=== PATIENT | male | born 1950 ===

== ENCOUNTER 2020-05-12 11:21 | Emergency (ER) | payer MEDICARE, SELFPAY ==
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
[2020-05-12 11:32] VITALS: BP 130/69; PULSE 76; RESP 20; TEMP 36.3; O2SAT 99
== END 2020-05-12 11:47 | disposition home or self-care (01) ==
PROVIDERS: Emergency Provider Emergency Medicine; PCP Internal Medicine
DX: T25.021A Burn of unspecified degree of right foot, initial encounter (principal); T25.022A Burn of unspecified degree of left foot, initial encounter; E11.9 Type 2 diabetes mellitus without complications; I10 Essential (primary) hypertension; Z79.82 Long term (current) use of aspirin; T31.0 Burns involving less than 10% of body surface; X08.8XXA Exposure to other specified smoke, fire and flames, initial encounter
CPT/HCPCS: 99213; G0463

== ENCOUNTER 2020-08-29 09:56 | Emergency (ER) | payer MEDICARE, SELFPAY ==
[2020-08-29 10:09] VITALS: BP 140/78; PULSE 82; RESP 16; TEMP 36.1; O2SAT 98
--- NOTE | 2020-08-29 10:32 | ED.SKABFB ---
HPI - Skin/Abscess/Foreign Bdy General Chief complaint: Skin/Abscess/Foreign Body Stated complaint: facial swelling/redness Time Seen by Provider: 08/29/20 10:19 Source: patient and RN notes reviewed Mode of arrival: ambulatory Limitations: no limitations History of Present Illness HPI narrative: Patient presents today complaining of redness, swelling, and pain to the right face x 2 days. Symptoms do not seem to be worsening. Pain only with touching the face and with movement of the mouth. Denies itching or rash. Denies any known insect bites or injury to the face. No tooth pain or sinus issues or drainage. States he had a temperature of 100 yesterday, but it was 97 today. He has tried no [id number] interventions prior to arrival. Denies history of abscesses, boils, cellulitis. History of diabetes. MD complaint: discoloration Related Data Home Medications Medication Instructions Recorded Confirmed aspirin 81 mg tablet,delayed 81 mg PO DAILY 10/18/19 08/29/20 release clobetasol TOPICAL 08/29/20 08/29/20 insulin glargine [Basaglar KwikPen 25 unit SUB-Q DAILY 08/29/20 08/29/20 U-100 Insulin] Allergies Allergy/AdvReac Type Severity Reaction Status Date / Time bee venom protein (honey bee) Allergy Swelling Verified 08/29/20 10:03 Review of Systems Review of Systems: Narrative: CONSTITUTIONAL: Denies body aches, fever, chills, or sweats. EYES: Denies visual changes, redness, or discharge. ENT: Denies rhinorrhea, congestion, sore throat, or otalgia. CARDIOVASCULAR: Denies chest pain, palpitations, or edema. RESPIRATORY: Denies cough or dyspnea. GASTROINTESTINAL: Denies abdominal pain, nausea, vomiting, or diarrhea. GENITOURINARY: Denies dysuria or hematuria. SKIN: Redness, swelling to the right face MUSCULOSKELETAL: Denies back pain, joint pain, or myalgia. NEUROLOGIC: Denies headache, numbness, tingling, or weakness. PSYCH: Denies depression or anxiety. [facility] Past Medical History Medical History (Updated 08/29/20 @ 10:33 by Caroline Daniel, [employer], [employer]) Diabetes mellitus Essential (primary) hypertension Insulin dependent diabetes mellitus Skin cancer Surgical History Surgical History (Updated 10/18/19 @ 09:10 by Lourdes Espinoza, [facility]) Hx of prostate biopsy Family History Family History (Updated 04/12/18 @ 13:44 by DOCTOR UNKNOWN) Father Diabetes mellitus Hypertension Family history of Alzheimer's disease Mother Hypertension Other Family history of cardiovascular disease Family history of malignant neoplasm Social History Social History Smoking status: Never smoker Alcohol intake: never Gender identity (if verbalized by the patient): Male Comments At time of signature, I have reviewed and agree with nursing past medical, surgical, social and family history unless otherwise noted. Please see nursing chart for further information. There is no relevant family history pertinent to the presenting complaint Exam Narrative: Exam Narrative: GENERAL: Well-appearing, well-nourished, and in no acute distress. HEAD: Normocephalic, atraumatic. EYES: EOMI. PERRL. No redness or drainage. Conjunctivae normal. ENT: Mucous membranes pink and moist. Nares clear. No rhinorrhea. TMs normal bilaterally. NECK: Normal AROM. Supple. Tenderness in the right postauricular, anterior cervical, and submandibular chains. CHEST: No respiratory distress. EXTREMITIES: Normal range of motion. No edema. SKIN: dry. Capillary refill normal. Normal skin turgor. Tenderness to right face. Erythema from right moravian extending to right cheek to mandible. Scant induration at moravian and small area at the cheekbone. No wounds, drainage, areas of fluctuance or possible abscess. Full AROM of the jaw. Nose unaffected. Lips unaffected. Right earlobe is mildly erythematous. Increased warmth to areas of erythema. NEURO: No focal deficits. Alert and oriented x3. Gait steady. PSYCH: Normal affect. No s
== END 2020-08-29 10:37 | disposition home or self-care (01) ==
PROVIDERS: Emergency Provider Nurse Practitioner; PCP Internal Medicine
DX: L03.211 Cellulitis of face (principal); E11.9 Type 2 diabetes mellitus without complications; I10 Essential (primary) hypertension; Z79.4 Long term (current) use of insulin; Z85.828 Personal history of other malignant neoplasm of skin
CPT/HCPCS: 99213; G0463

== ENCOUNTER 2021-05-27 09:56 | Emergency (ER) | payer MEDICARE, SELFPAY ==
--- NOTE | ~2021-05-27 | CT_ITS ---
EXAMINATION: CT abdomen pelvis wo con DATE: 05/27/2021 14:14 INDICATION: Right flank pain. TECHNIQUE: Computed tomography (CT) of the abdomen and pelvis was performed without intravenous contr ast. Automated exposure control and iterative reconstruction technique were employed. The dose-length product was 806.19 mGy-cm. COMPARISON: None. FINDINGS: The visualized portions of the lung bases demonstrate mild atelectasis. A calcified left satish ng nodule is consistent with old granulomatous disease. No pleural effusion. The heart size is normal . There are coronary artery calcifications. No pericardial effusion. The liver and gallbladder are no rmal. Calcifications in the spleen are consistent with old granulomatous disease. The pancreas and ad renal glands are normal. There is a 2 mm stone in right kidney. There is moderate right hydronephrosi s and hydroureter. There is a 4 mm stone in proximal right ureter. There is edema and a small volume of fluid in the right retroperitoneum. There are three 1-2 mm stones in left kidney. There is mild le ft hydronephrosis. The bladder is distended. The prostate is severely enlarged. There are no dilated loops of bowel. The appendix is normal. There are no pathologically enlarged lymph nodes. There is satish mbar levoscoliosis and severe spondylosis. There is mild chronic anterior wedging of multiple thoraci c vertebral bodies. IMPRESSION: 1. 4 mm stone in proximal right ureter with moderate right hydronephrosis and hydroureter. 2. Small nonobstructing bilateral kidney stones. 3. Mild left hydronephrosis, which may be secondary to the bladder distention. Reviewed, dictated and finalized at location B. IMPRESSION: 1. 4 mm stone in proximal right ureter with moderate right hydronephrosis and h ydroureter. 2. Small nonobstructing bilateral kidney stones. 3. Mild left hydronephrosis, which may be secondary to the bladder distention.
--- NOTE | ~2021-05-27 | XR_ITS ---
EXAMINATION: XR lumbar spine 2-3V DATE: 05/27/2021 11:55 INDICATION: Severe right-sided back pain. TECHNIQUE: 3 views of lumbar spine were obtained. COMPARISON: None. FINDINGS: There is 33 degrees levoscoliosis of lumbar spine. There is mild chronic anterior wedging o f T12 vertebral body. There is severely decreased disc height from T12-L1 through L5-S1 with endplate remodeling. There is multilevel severe facet joint osteoarthritis. IMPRESSION: 1. Severe lumbar spondylosis. 2. Lumbar levoscoliosis. Reviewed, dictated and finalized at location B.
--- NOTE | ~2021-05-27 | XR_ITS ---
XR abdomen/kub 1V 05/27/2021 14:44 Indication: Right-sided kidney stone Procedure: KUB Comparison: No prior studies for comparison. Findings: Bowel gas pattern is nonobstructive. Moderate colonic fecal loading. No renal stones are id entified. There is levoscoliosis with advanced lumbar spondylosis. Impression: 1: No acute abdominal abnormality. Reviewed, dictated and finalized at location A. Impression: 1: No acute abdominal abnormality.
[2021-05-27 10:17] VITALS: BP 142/73; PULSE 67; RESP 18; TEMP 36.6; O2SAT 100
[2021-05-27 11:49] LABS: Basophils Absolute Auto 0.1 K/mm3 (0.0-0.1); Basophils Percent Auto 0.4 % (0.2-1.2); Eosinophils Percent Auto 0.3 % (0-4.4); Hematocrit 42.3 % (42.0-52.0); Hemoglobin 14.1 g/dL (14.0-18.0); Immature Granulocyte Absolute 0.03 K/mm3 (0.00-0.031); Immature Granulocyte Percent A 0.3 % (0-0.5); Lymphocytes Percent Auto 6.7 % (18.3-44.2); Mean Corpuscular HGB Conc 33.3 g/dl (32-36); Mean Corpuscular Hemoglobin 30.2 pg (26-34); Mean Corpuscular Volume 90.6 fl (80-100); Mean Platelet Volume 9.1 fl (7.4-10.4); Monocytes Absolute Auto 0.5 K/mm3 (0.1-0.6); Monocytes Percent Auto 3.9 % (2.6-8.5); Neutrophils Absolute Auto 10.5 K/mm3 (1.3-6.7); Neutrophils Percent Auto 88.4 % (45.5-73.1); Platelet Count Result 267 k/mm3 (150-375); Red Blood Count 4.67 M/mm3 (4.6-6.20); Red Cell Distribution Width 12.9 % (11.5-14.5); White Blood Count 11.9 K/mm3 (4.5-10.0)
--- NOTE | 2021-05-27 12:11 | ED.GENADULT ---
HPI - General Adult General Chief complaint: Back Pain/Injury Stated complaint: R lower Back pain down R groin Time Seen by Provider: 05/27/21 11:11 Source: patient History of Present Illness HPI narrative: Patient is 70 y/o male complaining or right back pain starting earlier this morning. He describes his pain as a constant ache and rates it as 10/10 initially and 7/10 currently. He took some Ibuprofen which helped with his pain after a while. His pain radiates to right groin. He had some vomiting. He has no dysuria or hematuria. Related Data Home Medications Medication Instructions Recorded Confirmed aspirin 81 mg tablet,delayed 81 mg PO DAILY 10/18/19 08/29/20 release clobetasol 1 applic TOPICAL PRN PRN 08/29/20 08/29/20 insulin glargine [Basaglar KwikPen 15 unit SUB-Q DAILY 08/29/20 08/29/20 U-100 Insulin] Allergies Allergy/AdvReac Type Severity Reaction Status Date / Time bee venom protein (honey bee) Allergy Swelling Verified 05/27/21 10:24 Review of Systems Constitutional: Constitutional: Denies chills, Denies fever(s), Denies headache(s) and Denies weakness Eyes: Eyes: Denies blurry vision ENT: Denies headache(s) and Denies neck pain Cardiovascular: Cardiovascular: Denies chest pain and Denies dyspnea Respiratory: Respiratory: Denies cough and Denies dyspnea Gastrointestinal: Gastrointestinal: Denies abdominal pain, Denies diarrhea, Reports nausea and Reports vomiting Genitourinary: Genitourinary: Denies hematuria and Denies dysuria Musculoskeletal: Musculoskeletal: Reports back pain and Denies neck pain Neurologic: Denies headache(s) and Denies weakness [facility] Past Medical History Medical History (Updated 05/27/21 @ 15:33 by Katia Rosado MD) Diabetes mellitus Essential (primary) hypertension Insulin dependent diabetes mellitus Skin cancer Surgical History Surgical History (Updated 10/18/19 @ 09:10 by Lourdes Espinoza CMA) Hx of prostate biopsy Family History Family History (Updated 04/12/18 @ 13:44 by DOCTOR UNKNOWN) Father Diabetes mellitus Hypertension Family history of Alzheimer's disease Mother Hypertension Other Family history of cardiovascular disease Family history of malignant neoplasm Social History Social History Smoking status: Never smoker Alcohol intake: never Gender identity (if verbalized by the patient): Male Exam Const: General: no acute distress and well developed Orientation/consciousness: oriented to person, oriented to place, oriented to time and patient oriented x3 HENMT: Head: normocephalic Ears: external ears normal General nose exam: Normal external nose present Eyes: General: appearance normal, both eyes and all related structures Conjunctivae: conjunctivae normal Neck: Neck: normal visual inspection and full ROM Chest: Chest palpation & inspection: normal inspection of the chest and no tenderness Resp: Effort & Inspection: normal respiratory effort Auscultation: clear to auscultation bilaterally Cardio: Rate: regular rate Rhythm: regular rhythm GI: GI Palp: No abdominal tenderness and Yes Soft to palpation Skin: General skin exam: normal color and turgor normal Neuro: General: oriented to person, oriented to place, oriented to time and patient oriented x3 Cognition (Neuro): normal cognition Extrem: General: normal to inspection, full ROM and no pedal edema Psych: Appearance: grossly normal Mental Status: mental status grossly normal Affect: normal affect Course Reevaluation(s) Reevaluation #1: Rechecked. Patient feels well. He has no significant pain. Date: 05/27/21 Time: 15:31 Consultations Consultation #1: Discussed with Hanh and Dr. Vigil, who agree with plan for discharge and they will follow up with him within a week. Date: 05/27/21 Time: 15:47 Vital Signs Vital signs: Vital Signs Temperature 36.6 C 05/27/21 10:17 Pulse Rate 67 05/27/21 10:17 Respiratory Rate 18 05/11
[2021-05-27 12:34] LABS: Anion Gap 6 mmol/L (8-16); Blood Urea Nitrogen 47 mg/dL (9-20); Calcium 9.8 mg/dL (8.4-10.2); Carbon Dioxide 31 mmol/L (22-30); Chloride 100 mmol/L (98-107); Estimated CRCL calculation 41 ml/min; Estimated Glomerular Filt Rate 47; Glucose 193 mg/dL (65-110); Potassium 4.1 mmol/L (3.4-5.0); Sodium 137 mmol/L (137-145)
[2021-05-27] MEDS: MORPHINE SULFATE (*CRX) 2 MG/ML INJ IV PUSH (12:35)
[2021-05-27] MEDS: METOCLOPRAMIDE HCL INJ 10 MG/2 ML VIAL IV PUSH (12:36)
[2021-05-27] MEDS: SODIUM CHLORIDE 0.9% IV 1,000 ML 999 ML IV CONT (12:36)
[2021-05-27 12:56] VITALS: BP 134/66; PULSE 76; RESP 15; O2SAT 100
[2021-05-27 13:13] LABS: Add Urine Microscopic? YES; Appearance Urine Clear (Clear); Bilirubin Urine Negative (Negative); Blood Urine 1+ (Negative); Color Urine Straw (Yellow); Glucose Urine UA 1+ mg/dL (Negative); Ketones Urine Trace mg/dL (Negative); Leukocyte Esterase Ur Negative LEU/UL (Negative); Nitrate Urine Negative (Negative); Protein Urine 1+ mg/dL (Negative); RBC Urine 21-50 /hpf (0-2); Specific Grav Ur 1.014 (1.001-1.035); Urobilinogen Urine Negative mg/dL (<2.0); WBC Urine 0-3 /hpf
[2021-05-27 14:52] VITALS: BP 117/65; PULSE 71; RESP 15; O2SAT 100
--- NOTE | 2021-05-27 15:30 | PC.NURSE ---
EDP at bedside for results.
[2021-05-27 15:47] VITALS: BP 118/75; PULSE 73; RESP 15; O2SAT 100
== END 2021-05-27 15:48 | disposition home or self-care (01) ==
PROVIDERS: Emergency Provider Emergency Medicine; PCP Internal Medicine
DX: N20.1 Calculus of ureter (principal); E11.9 Type 2 diabetes mellitus without complications; I10 Essential (primary) hypertension; Z79.4 Long term (current) use of insulin
CPT/HCPCS: 36415; 72100; 74018; 74176; 80048; 81001; 85025; 96361; 96374; 96375; 99284; J2270; J2765; J7030